=== PATIENT | male | born 1960 | race Two or more races ===

== ENCOUNTER 2016-07-10 06:15 | Emergency (ER) | payer OTHER | END 2016-07-10 07:10 | disposition home or self-care (01) | LOC: CED 06:15 | DX: G89.29 Other chronic pain (principal); M79.605 Pain in left leg; M79.604 Pain in right leg; E78.5 Hyperlipidemia, unspecified; I10 Essential (primary) hypertension; F17.210 Nicotine dependence, cigarettes, uncomplicated; Z88.0 Allergy status to penicillin | CPT/HCPCS: 96372; 99283; J1885 ==

== ENCOUNTER 2016-08-26 04:26 | Emergency (ER) | payer OTHER | END 2016-08-26 05:25 | disposition home or self-care (01) | LOC: CED 04:26 | DX: M54.5 Low back pain (principal); I10 Essential (primary) hypertension; F41.9 Anxiety disorder, unspecified; F17.210 Nicotine dependence, cigarettes, uncomplicated; Z88.0 Allergy status to penicillin; X58.XXXA Exposure to other specified factors, initial encounter | CPT/HCPCS: 96372; 99283; J1885 ==